=== PATIENT | male | born 1945 | race Caucasian/White ===

== ENCOUNTER → 2017-10-18 | Outpatient (CLI) | payer MEDICARE ==
[2017-10-18 10:48] LABS: Blood Urea Nitrogen 19 mg/dL (9-20)
--- NOTE | 2017-10-18 12:46 | CT ---
EXAMINATION TYPE: CT angio thor/abd pel aorta DATE OF EXAM: 10/18/2017 COMPARISON: NONE HISTORY: Aortic aneurysm CT DLP: 892 mGycm. Automated Exposure Control for Dose Reduction was Utilized. CONTRAST: CT scan of the thorax, abdomen and pelvis is performed with IV Contrast, patient injected with 100 ml mL of Isovue 370. 3-D reformats were obtained of the vasculature of the chest, abdomen, and pelvis. FINDINGS: VASCULATURE: Beginning at the isthmus within the aortic arch there is a descending thoracic aortic an eurysm without dissection. This measures 3.9 x 4.2 cm proximally such as on series 5 image 25 and tap ers in its midportion to measure 3.5 x 3.6 cm on series 5 image 42 and is tortuous distally measuring approximately 3.2 x 3.1 cm just before the diaphragmatic hiatus. There is mild calcific and noncalci fic atheromatous plaquing of the thoracic aorta and abdominal aorta with minimal nonhemodynamically s ignificant stenosis of the celiac axis, SMA, and renal arteries. Major vessels are patent. There is tortuosity of the abdominal aorta in the infrarenal abdominal aorta is upper limits of leigh ann l measuring 2.9 x 2.9 cm on series 5 image 78. There is no infrarenal abdominal aortic aneurysm. The iliac vasculature is also upper limits of normal measuring 1.5 cm bilaterally. There is no aneurysm o f the ascending thoracic aorta. Severe coronary artery calcifications are seen. There is normal conve ntional 3 vessel branch pattern of the aortic arch. LUNGS: The lungs are grossly clear, there is no concerning parenchymal mass or nodule identified. T here is no pleural effusion or pneumothorax seen. The tracheobronchial tree is patent. MEDIASTINUM: There are no greater than 1 cm hilar or mediastinal lymph nodes. No pericardial effusi on is seen. OTHER: There is a predominantly intrathoracic stomach. LIVER/GB: No significant abnormality is appreciated. No cholelithiasis. PANCREAS: No significant abnormality is seen. No ductal dilatation. SPLEEN: No splenomegaly. ADRENALS: No nodularity or thickening. KIDNEYS: There is a 1.3 cm right cortical renal cysts and superior pole anterior renal lesion that is too small to accurately characterize on series 5 image 67. No hydronephrosis bilaterally. BOWEL: Few colonic diverticula are seen. No dilation of large or small bowel. Again stomach is predom inantly intrathoracic. Appendix is air-filled and within normal limits. GENITAL ORGANS: Prostate gland is heterogenous containing central zone calcifications. LYMPH NODES: No greater than 1cm abdominal or pelvic lymph nodes are appreciated. OSSEOUS STRUCTURES: Moderate multilevel degenerative changes of the spine are present. There is a gra de 2 anterolisthesis of L5 on S1 with bilateral pars interarticularis defects. Slight retrolisthesis of L2 on L3 and L1 on L2 are noted. OTHER: There are small fat filled inguinal hernias. IMPRESSION: 1. Descending thoracic aortic aneurysm beginning at the aortic isthmus of the aortic arch measuring 3 .9 x 4.2 cm tapering in its midportion to measure 3.5 x 3.6 cm. This does not extend into the abdomin al aorta, aortic arch or ascending thoracic aorta. No dissection is seen. Patency of the proximal bra nch vessels. 2. Moderate degenerative changes of the thoracic spine with grade 2 anterolisthesis of L5 on S1 and m ultilevel mild retrolisthesis.
== END | disposition home or self-care (01) ==
LOC: RADCTMAIN 09:59
PROVIDERS: ATTEND Thoracic Surgery (Cardiothoracic Vascular Surgery)
DX: I71.01 Dissection of thoracic aorta (principal); I71.2 Thoracic aortic aneurysm, without rupture
CPT/HCPCS: 82565; 84520; 71275; 36415; 74174; Q9967

== ENCOUNTER → 2018-10-22 | Outpatient (CLI) | payer MEDICARE ==
--- NOTE | 2018-10-22 12:45 | CT ---
EXAMINATION TYPE: CT angio chest DATE OF EXAM: 10/22/2018 COMPARISON: 10/18/2017 HISTORY: 73-year-old male Follow up for descending thoracic aortic aneurysm TECHNIQUE: Contiguous axial scanning of the chest performed with IV Contrast, patient injected with 1 00 mL of Isovue 370. Coronal/sagittal MIP reconstructions performed. 3-D reconstructions generated on a dedicated independent workstation. CT DLP: 364.2 mGycm Automated exposure control for dose reduction was used. FINDINGS: Heart normal size without pericardial effusion. Extensive coronary vessel calcifications are present. Aortic root measures 4.1 cm, unchanged. Ascending aorta measures 3.9 cm, unchanged. Mild atherosclerotic arch calcifications with conventional branching anatomy. Upper descending thoracic aorta measures 4.2 cm, unchanged. Tortuous descending thoracic aorta with mild to moderate atherosclerotic plaque and calcification. Mid descending thoracic aorta is ectatic at 3.4 cm, unchanged. Lower descending thoracic aorta 3.3 cm, unchanged. There is moderate focal narrowing at the origin of the celiac axis. Arcuate ligament syndrome could b e a potential etiology. Upper abdominal aorta is borderline aneurysmal at 2.9 cm. Large caliber to the main right and the pulmonary arteries measuring up to 3.0 cm. No thoracic lymphadenopathy. Strandy left basilar atelectasis. No consolidation or pleural effusion. Moderate to large hiatal hernia. Bridging anterior endplate spondylosis mid to lower thoracic spine. IMPRESSION: 1. ANEURYSMAL THORACIC AORTA (ROOT 4.1 CM, UPPER DESCENDING 4.2 CM, AND MID ASCENDING 3.4 CM). MEASUR EMENTS ARE OVERALL UNCHANGED. 2. ECTATIC UPPER ABDOMINAL AORTA 2.8 CM. THERE IS MODERATE FOCAL NARROWING AT THE ORIGIN OF THE BEATRIZ C AXIS. ARCUATE LIGAMENT SYNDROME COULD BE A POTENTIAL ETIOLOGY. CORRELATE FOR APPROPRIATE CLINICAL S YMPTOMATOLOGY. 3. CAD. POSSIBLE UNDERLYING PULMONARY ARTERIAL HYPERTENSION. 4. MODERATE TO LARGE HIATAL HERNIA STABLE.
== END | disposition home or self-care (01) ==
LOC: RADCTMAIN 09:54
PROVIDERS: ATTEND Thoracic Surgery (Cardiothoracic Vascular Surgery)
DX: I71.2 Thoracic aortic aneurysm, without rupture (principal); I25.10 Atherosclerotic heart disease of native coronary artery without angina pectoris; I27.21 Secondary pulmonary arterial hypertension
CPT/HCPCS: 82565; 84520; 71275; 36415; Q9967

== ENCOUNTER → 2019-10-27 | Outpatient (CLI) | payer MEDICARE, OTHER ==
[2019-10-27 08:30] LABS: African American GFR (CKD) >90 (>60 ml/min/1.73 sqM); Blood Urea Nitrogen 26 mg/dL (9-20); Non-African American GFR(CKD) 86 (>60 ml/min/1.73 sqM)
--- NOTE | 2019-10-27 10:30 | CT ---
EXAMINATION TYPE: CT angio chest DATE OF EXAM: 10/27/2019 COMPARISON: Prior CT chest 10/22/2018 HISTORY: follow up known thoracic aortic aneurysm CT DLP: 753.5 mGycm Automated exposure control for dose reduction was used. CONTRAST: CTA scan of the thorax is performed without and with IV Contrast, patient injected with 100 mL of Iso odilon 370, pulmonary embolism protocol. MIP images are created and reviewed. 3D reconstructed images are created on an independent workstation and reviewed. FINDINGS: LUNGS: The lungs are grossly clear, there is no concerning parenchymal mass or nodule identified. T here is no pleural effusion or pneumothorax seen. The tracheobronchial tree is patent. AORTA: Ascending aorta measures approximately 4 cm. Proximal descending aorta measures approximately 4.3 cm. Aorta at the level of the hiatus measures approximately 3 cm, there is atheromatous change p resent. Suspect aortic root measures approximately 4.8 cm on the noncontrast exam. MEDIASTINUM: There is satisfactory enhancement of the pulmonary artery and its branches, there is no CT evidence for pulmonary embolism. There are no greater than 1 cm hilar or mediastinal lymph nodes. No pericardial effusion is seen. There are dense coronary artery calcifications present. OTHER: Sizable hiatal hernia with partial intrathoracic stomach is again noted.. IMPRESSION: KNOWN THORACIC AORTIC ANEURYSM, CONSIDER CORRELATION WITH ECHO FOR ROOT OF AORTIC MEASUREMENTS THOUGH T TO MEASURE APPROXIMATELY 4.8 CM DESCRIBED. CORONARY ARTERY DISEASE AND ADDITIONAL FINDINGS ABOVE .
== END | disposition home or self-care (01) ==
LOC: RADCTMAIN 07:53
PROVIDERS: ATTEND Thoracic Surgery (Cardiothoracic Vascular Surgery)
DX: I71.2 Thoracic aortic aneurysm, without rupture (principal); I25.10 Atherosclerotic heart disease of native coronary artery without angina pectoris
CPT/HCPCS: 82565; 84520; 71275; 36415; Q9967

== ENCOUNTER → 2020-11-05 | Outpatient (CLI) | payer MEDICARE, OTHER ==
--- NOTE | 2020-11-05 16:22 | CT ---
CT CHEST FOR PULMONARY EMBOLISM. EXAMINATION TYPE: CT angio chest DATE OF EXAM: 11/05/2020 INDICATION: Thoracic aortic aneurysm CT DLP: 778.80 mGycm, Automated exposure control for dose reduction was used. CONTRAST: Patient injected with 778.80 mL of Isovue 370. COMPARISON: 06/2019 TECHNIQUE: CT of the chest is performed on a spiral scan at 2 mm thick sections. Study is performed with intravenous contrast timed for evaluation for aortic aneurysm. This will limit additional porti ons of the evaluation. 3-D MIP images reconstructed by the technologist are reviewed on the computer in the coronal and sagittal planes. FINDNo persistent filling defects are evident to suggest an acute pulmonary embolism.olNo mediastinal or hilar adenopathy enlarged by CT criteria is evident.ident. The ascending aorta diameter at the l evel of the main pulmonary arte3.9is 3.9 cm. The main pulmonary artery diameter at the bifurcati3.1i s 3.1 cm. Aorta: The aorta at the aortic root is 3.5 cm. Aorta the main pulmonary artery is 3.9 cm. Aorta at th e aortic arch is 2.9 cm. The proximal descending thoracic aorta is dilated at 3.7 cm. The abdominal a cindy at the diaphragm is 3.2 cm. Coronary artery calcifications nLung windows are clear.clLimited CT section through the upper abdomen. There is a large hiatal hernia present.esent. IMPRESSION 1. Proximal descending thoracic aortic aneurysm with diameter of 3.7 cm some ascendin g thoracic aortic aneurysm is also present at the main pulmonary artery measuring 3.9 cm. 2. Large hiatal hernia
== END | disposition home or self-care (01) ==
LOC: RADCTMAIN 07:31
PROVIDERS: ATTEND Thoracic Surgery (Cardiothoracic Vascular Surgery)
DX: I71.2 Thoracic aortic aneurysm, without rupture (principal); K44.9 Diaphragmatic hernia without obstruction or gangrene
CPT/HCPCS: 82565; 84520; 71275; 36415; Q9967

== ENCOUNTER → 2022-01-11 | Outpatient (CLI) | payer MEDICARE, OTHER ==
[2022-01-11 14:40] LABS: African American GFR (CKD) >90 (>60 ml/min/1.73 sqM); Blood Urea Nitrogen 18 mg/dL (9-20); Non-African American GFR(CKD) 80 (>60 ml/min/1.73 sqM)
--- NOTE | 2022-01-11 15:52 | CT ---
CT CHEST FOR PULMONARY EMBOLISM. EXAMINATION TYPE: CT angio chest DATE OF EXAM: 01/11/2022 INDICATION: thoracic aortic aneurysm CT DLP: 755.2 mGycm, Automated exposure control for dose reduction was used. CONTRAST: Patient injected with 100 mL of Isovue 370. COMPARISON: 11/05/2020 TECHNIQUE: CT of the chest is performed on a spiral scan at 2 mm thick sections. Study is performed with intravenous contrast timed for evaluation of the thoracic aorta.. This will limit additional po rtions of the evaluation. 3-D MIP images reconstructed by the technologist are reviewed on the compu ter in the coronal and sagittal planes. FINDINGS: Portions of the thyroid visualized is normal. Moderate coronary artery calcification is present. A la rge hiatal hernia is present. Limited CTs sections through the upper abdomen are unremarkable. No suspicious focal consolidation or nodules are evident within the lung mcintosh. Measurements were obtained on the contrast study. Thoracic aorta at the aortic root measures 3.7 cm. Stable from comparison. Thoracic aorta at the level of the main pulmonary artery measures 3.8 cm. The main pulmonary artery at the bifurcation measures 3.0 cm. Aorta within the proximal aortic arch appears normal measuring 3.1 cm. Previous measurement 2.9 cm. There is dilatation of the posterior distal thoracic aortic arch with a transverse dimension of 4.3 c m. Previous measurement 4.3 cm. The aorta somewhat tapers through the chest. Within the mid chest this measures 3.1 cm. At the level of the diaphragm this measures 3.2 cm. Celiac axis and superior mesenteric artery takeoffs are identi fied. The renal artery takeoffs are identified. Proximal abdominal aorta AP diameter is 3.[address] section through the upper abdomen are unremarkable. IMPRESSIONS: 1. Stable appearance to the thoracic aortic aneurysm.
== END | disposition home or self-care (01) ==
LOC: RADCTMAIN 13:48
PROVIDERS: ATTEND Family Medicine
DX: I71.2 Thoracic aortic aneurysm, without rupture (principal)
CPT/HCPCS: 82565; 84520; 71275; 36415; Q9967

== ENCOUNTER → 2022-12-29 | Outpatient (CLI) | payer MEDICARE, OTHER ==
--- NOTE | 2022-12-29 12:11 | CT ---
EXAMINATION TYPE: CT chest wo con DATE OF EXAM: 12/29/2022 COMPARISON: 01/11/2022 HISTORY: 77-year-old male I71.20, f/u aneurysm TECHNIQUE: Contiguous axial scanning of the chest without contrast. Coronal/sagittal reconstructions performed. CT DLP: 626mGycm. Automatic exposure control utilized for a dose reduction. FINDINGS: Heart normal size without pericardial effusion. Extensive three-vessel coronary artery calcifications are present. Mild aneurysm aortic root at 4.1 cm, unchanged. Mild aneurysm ascending aorta at 4.3 cm versus 4.2 cm, previously. Conventional arch was a branching anatomy. Mild atherosclerotic arch calcifications. Aneurysm upper descending thoracic aorta 4.4 cm, unchanged. Aneurysm mid descending thoracic aorta 3.8 cm, unchanged. Lower descending thoracic aorta is aneurysmal at 3.5 cm. Moderate atherosclerotic calcifications throughout the visualized upper abdominal aorta. Large caliber to the main right and left pulmonary arteries measuring up to 3.2 cm. No thoracic lymphadenopathy by CT size criteria. Lungs show no consolidation or pleural effusion. Moderate stool burden. There is a large hiatal hernia involving half of the stomach in the lower ches t. Bones: Extensive dish throughout the mid and lower thoracic spine. IMPRESSION: 1. Aneurysmal thoracic aorta (ascending measuring up to 4.3 cm versus 4.2 cm, previously. Descending measuring up to 4.4 cm, unchanged). 2. Pulmonary arterial hypertension. COPD with extensive three-vessel coronary artery calcifications. 3. Large hiatal hernia involving half of the stomach in the lower chest. 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
== END | disposition home or self-care (01) ==
LOC: RADCTMAIN 09:27
PROVIDERS: ATTEND Surgery
DX: I71.21 Aneurysm of the ascending aorta, without rupture (principal); I27.21 Secondary pulmonary arterial hypertension; J44.9 Chronic obstructive pulmonary disease, unspecified; I25.10 Atherosclerotic heart disease of native coronary artery without angina pectoris; K44.9 Diaphragmatic hernia without obstruction or gangrene; M51.34 Other intervertebral disc degeneration, thoracic region
CPT/HCPCS: 71250

== ENCOUNTER → 2024-03-24 | Outpatient (CLI) | payer MEDICARE ==
--- NOTE | 2024-03-24 12:41 | CT ---
EXAMINATION TYPE: CT chest wo con DATE OF EXAM: 03/24/2024 COMPARISON: 12/29/2022 CLINICAL INDICATION: Male, 78 years old with history of I71.20 THORACIC ANEURYSM; [facility], monitoring tho racic aortic aneurysm TECHNIQUE: CT scan of the thorax is performed without IV contrast. CT DLP: 437.40 mGycm Automated exposure control for dose reduction was used. FINDINGS: LUNGS: The lungs are grossly clear, there is no concerning consolidation. 4 mm nodule left lower lobe too small to characterize retrospectively stable.. There is no pleural effusion or pneumothorax se en. The tracheobronchial tree is patent. MEDIASTINUM: Lack of IV contrast is noted to limit evaluation for mediastinal and especially hilar ad enopathy. There are no definitive greater than 1 cm hilar or mediastinal lymph nodes. Extensive coron becki artery calcification with calcification in the aortic valve. The heart is enlarged and there is a trace of pericardial fluid. Suspect that there is an aneurysm in the upper abdominal aorta measuring 3.7 cm. Mild aneurysm aortic root at 4.1 cm, unchanged. Mild aneurysm ascending aorta at 4.3 cm versus 4.2 cm , previously. Conventional arch was a branching anatomy. Mild atherosclerotic arch calcifications. An eurysm upper descending thoracic aorta 4.4 cm, unchanged. Aneurysm mid descending thoracic aorta 3.8 cm, unchanged. Lower descending thoracic aorta is aneurysmal at 3.5 cm. Moderate atherosclerotic calc ifications throughout the visualized upper abdominal aorta. Large caliber to the main right and left pulmonary arteries measuring up to 3.2 cm. OTHER: Large hiatal hernia. Multilevel hypertrophic and degenerative changes of the spine.. IMPRESSION: 1. Stable aortic aneurysm unchanged from prior exam. 2. Suspect that there is a abdominal aortic aneurysm partially included in the [id number] measurin g a maximal dimension of 3.7 cm. 3. Large hiatal hernia is stable. 4. Extensive coronary artery calcification. 5. Correlate for pulmonary arterial hypertension. 6. 4 mm left lower lobe pulmonary nodule retrospectively stable recommend 12 month follow-up. Follow-up recommendations for incidental pulmonary nodules are per [employer] or [employer]. [facility], , 03/24/2024 12:38 PM
== END | disposition home or self-care (01) ==
LOC: RADCTMAIN 11:15
PROVIDERS: ATTEND Surgery
DX: I71.20 Thoracic aortic aneurysm, without rupture, unspecified (principal); K44.9 Diaphragmatic hernia without obstruction or gangrene; I25.10 Atherosclerotic heart disease of native coronary artery without angina pectoris; R91.1 Solitary pulmonary nodule
CPT/HCPCS: 71250